=== PATIENT | female | born 1955 | race Two or more races ===

== ENCOUNTER 2025-02-27 22:07 | Inpatient (IN) | payer MEDICARE, OTHER ==
[~2025-02-27] VITALS: Ht 152.4 cm; Wt 49.0 kg
[2025-02-27 22:43] LABS: BASOPHILS % (AUTO) 0.3 % (0.0-2.0); CALCIUM, SERUM 9.1 mg/dL (8.5-10.1); CREATININE 2.3 mg/dL (0.6-1.3); EOSINOPHILS # (AUTO) 0.1 K/uL (0.0-0.7); EOSINOPHILS % (AUTO) 0.6 % (0.0-6.0); HEMATOCRIT 32 % (33-45); HEMOGLOBIN 10.2 g/dL (11.5-14.8); LYMPHOCYTES # (AUTO) 0.5 K/uL (0.8-4.8); LYMPHOCYTES % (AUTO) 2.7 % (20.0-44.0); MEAN CORPUSCULAR HEMOGLOBIN 29 PG (26.0-33.0); MEAN CORPUSCULAR HGB CONC 32 g/dl (31.0-36.0); MEAN CORPUSCULAR VOLUME 91 fL (82-100); MONOCYTES # (AUTO) 0.5 K/uL (0.1-1.30); NEUTROPHILS # (AUTO) 16.8 K/uL (1.8-8.9); NEUTROPHILS % (AUTO) 93.4 % (43.0-81.0); PLATELET COUNT (AUTO) 154 K/uL (150-450); POTASSIUM 3.5 mmol/L (3.5-5.1); RED CELL DISTRIBUTION WIDTH 15.9 % (11.5-15.0)
[2025-02-27 22:50] LABS: ALBUMIN 3.4 g/dL (3.4-5.0); BILIRUBIN,DIRECT 0.5 mg/dL (0.0-0.2); TOTAL PROTEIN, SERUM 7.9 g/dL (6.4-8.2)
[2025-02-27 23:40] LABS: BAND % (MANUAL) 1 % (0.0-5.0); LYMPHOCYTES % (MANUAL) 5 % (16-48); MONOCYTES % (MANUAL) 3 % (0-11.0)
[2025-02-27 23:41] LABS: METAMYELOCYTES % 2 % (0-0); NEUTROPHILS % (MANUAL) 89 (42-76)
[2025-02-27 23:42] LABS: PLATELET ESTIMATE ADEQUATE
[2025-02-27 23:44] LABS: ANISOCYTOSIS 1+
[2025-02-28] VITALS (9 sets, daily range): BP systolic 40–123; BP diastolic 15–66; TEMP 97.3–99.1; O2SAT 60–100
[2025-02-28] MEDS ORDERED: PIPERACI/TAZO 3.375GM/D5W 50ML PB IV ONE (00:22)
[2025-02-28] MEDS ORDERED: ONDANSETRON HCL/PF 4 MG/2 ML VIAL ONE (00:24)
[2025-02-28] MEDS: ONDANSETRON HCL/PF 4 MG/2 ML VIAL IV ONE (00:29)
[2025-02-28] MEDS: PIPERACILLIN /TAZOBACTAM 3.375 G in IV D5W 50 ML IV ONE (00:39)
[2025-02-28] MEDS: IV NS 0.9% 250 ML BAG IV ONE ×2 (00:39→03:30)
[2025-02-28] MEDS ORDERED: ACETAMINOPHEN 650 MG/SUPP.RECT RC ONE (00:43)
[2025-02-28] MEDS: ACETAMINOPHEN 650 MG/SUPP.RECT RC ONE (00:48)
[2025-02-28] MEDS ORDERED: ACETAMINOPHEN 650 MG/SUPP.RECT RC PRN (01:30)
[2025-02-28] MEDS ORDERED: ONDANSETRON HCL/PF 4 MG/2 ML VIAL IVP PRN (01:30)
[2025-02-28 02:11] LABS: LACTIC ACID 2.5 mmol/L (0.4-2.0)
[2025-02-28] MEDS ORDERED: VANCOMYCIN 1 GM in IV D5W 250ml IV ONE (05:30)
[2025-02-28] MEDS ORDERED: VANCOMYCIN 1 GM /D5W 250 ML PB IV ONE (05:46)
[2025-02-28] MEDS: VANCOMYCIN 1 GM in IV D5W 250ml IV ONE (06:02)
[2025-02-28] MEDS ORDERED: PROPOFOL 100 ML IV PRN (07:00)
[2025-02-28] MEDS ORDERED: ATROPINE SULFATE 1 MG/10 ML DISP.SYRIN ONE (07:03)
[2025-02-28] MEDS ORDERED: CALCIUM CHLORIDE 1,000 MG/10 ML DISP.SYRIN IV ONE (07:06)
[2025-02-28] MEDS ORDERED: NOREPINEPHRINE 8MG/250ML RTU 250 ML IV ONE (07:24)
[2025-02-28] MEDS ORDERED: SODIUM BICARBONATE SYR 50 MEQ/50 ML DISP.SYRIN IV ONE (07:31)
[2025-02-28] MEDS ORDERED: EPINEPHRINE (1:10,000) SYRINGE 1 MG/10 ML DISP.SYRIN IVP ONE (08:22)
[2025-02-28] MEDS ORDERED: PANTOPRAZOLE 40 MG VIAL IV SCH (09:00)
[2025-02-28] MEDS ORDERED: PIPERACILLIN /TAZOBACTAM 2.25 G in IV D5W 50 ML IV SCH (12:00)
[2025-03-01] MEDS ORDERED: VANCOMYCIN POST DIALYSIS 500MG IV PRN (14:00)
== END 2025-02-28 18:34 | DRG 871 ==
LOC: ER 22:13 → TELE 02-28 05:15 → ICU 02-28 06:54
PROVIDERS: ADMIT Nurse Practitioner Family; ATTEND Nurse Practitioner Family
PROC: 5A1935Z Respiratory Ventilation, Less than 24 Consecutive Hours (ICD-10-PCS; principal; 2025-02-28)
PROC: 0BH17EZ Insertion of Endotracheal Airway into Trachea, Via Natural or Artificial Opening (ICD-10-PCS; 2025-02-28)
PROC: 5A12012 Performance of Cardiac Output, Single, Manual (ICD-10-PCS; 2025-02-28)
DX: A41.9 Sepsis, unspecified organism (principal); J69.0 Pneumonitis due to inhalation of food and vomit; N18.6 End stage renal disease; R65.21 Severe sepsis with septic shock; I12.0 Hypertensive chronic kidney disease with stage 5 chronic kidney disease or end stage renal disease; I46.9 Cardiac arrest, cause unspecified; E78.5 Hyperlipidemia, unspecified; Z99.2 Dependence on renal dialysis; D63.1 Anemia in chronic kidney disease; Z20.822 Contact with and (suspected) exposure to COVID-19; E11.649 Type 2 diabetes mellitus with hypoglycemia without coma; H54.62 Unqualified visual loss, left eye, normal vision right eye; Z66 Do not resuscitate; D63.8 Anemia in other chronic diseases classified elsewhere
CPT/HCPCS: 36415; 70450-TC; 71045-TC; 80048-TC; 80076-TC; 82962-TC; 83605-TC; 83690-TC; 85025-TC; 87040-TC; 87186-TC; A4223; G0378; J0171; J0461; J2405; J2543; J3370; J3490; J7050; J7060